=== PATIENT | male | born 1970 | race Caucasian/White ===

== ENCOUNTER 2020-10-28 10:21 | Day surgery (SDC) | payer OTHER ==
[2020-10-28] MEDS ORDERED: diphenhydrAMINE 50 MG/ML VIAL ONE (13:32)
[2020-10-28] MEDS ORDERED: LIDOCAINE 2% 100 MG/5 ML UJET TP ONE ×2 (13:32→14:50)
[2020-10-28] MEDS ORDERED: fentaNYL citrate 0.05 MG/ML VIAL ONE (13:32)
[2020-10-28] MEDS ORDERED: MIDAZOLAM 5 MG/5 ML VIAL ONE (13:32)
[2020-10-28] MEDS ORDERED: fentaNYL citrate 0.05 MG/ML VIAL IVP ONE (14:50)
== END 2020-10-28 15:32 | disposition home or self-care (01) ==
LOC: MDS 10:21 → MMU 10:35 → MDS 15:32
PROVIDERS: ATTEND Internal Medicine Gastroenterology
DX: Z12.11 Encounter for screening for malignant neoplasm of colon (principal); K64.8 Other hemorrhoids; E11.9 Type 2 diabetes mellitus without complications; E78.00 Pure hypercholesterolemia, unspecified; Z79.84 Long term (current) use of oral hypoglycemic drugs; Z79.899 Other long term (current) drug therapy
CPT/HCPCS: 45378; J3010; J1200; J2250